=== PATIENT | female | born 1950 | race Caucasian/White ===

== ENCOUNTER 2018-01-02 09:34 | Outpatient (CLI) | payer MEDICARE, BC ==
[2018-01-02 10:51] LABS: #Basophils 0.1 thou/uL (0.0-0.2); #Eosinphils 0.3 thou/uL (0.0-0.7); #Lymphocytes 2.3 thou/uL (1.20-3.40); #Monocytes 0.5 thou/uL (0.11-0.59); #Neutrophils 3.2 thou/uL (1.40-6.50); %Basophils 1.3 % (0.0-1.0); %Eosinophils 4.1 % (0.0-10.0); %Lymphocytes 36.3 % (21.0-51.0); %Monocytes 8.5 % (0.0-10.0); %Neutrophils 49.8 % (42.0-75.0); Hemoglobin 13.8 g/dL (12.0-16.0); Mean Corpuscular HGB CONC 34.3 g/dL (32.0-36.0); Mean Corpuscular Hemoglobin 31.5 pg (27.0-31.0); Mean Corpuscular Volume 91.8 fL (78.0-98.0); Platelet Count 507 thou/uL (130-400); RBC Distribution Width 11.5 % (11.5-14.5); Red Blood Cell (RBC) Count 4.39 mill/uL (4.20-5.40); White Blood Cell (WBC) Count 6.4 thou/uL (4.8-10.8)
[2018-01-02 11:10] LABS: Anion Gap 11 mmol/L (10-20); BUN (Urea Nitrogen) 13 mg/dL (9.8-20.1); Calc. Creatinine Clearance 0 mL/min (70-130); Calcium 9.7 mg/dL (7.8-10.44); Carbon Dioxide 29 mmol/L (23-31); Chloride 104 mmol/L (98-107); Estimated GFR-MDRD 64; Glucose 97 mg/dL (80-115); Sodium 139 mmol/L (136-145)
== END 2018-01-02 09:35 | disposition home or self-care (01) ==
LOC: LABBT 09:34
PROVIDERS: ATTEND Surgery
DX: Z01.812 Encounter for preprocedural laboratory examination (principal); C50.912 Malignant neoplasm of unspecified site of left female breast
CPT/HCPCS: 80048; 85025

== ENCOUNTER 2018-01-13 06:58 | Day surgery (SDC) | payer MEDICARE, BC ==
[2018-01-02 09:46] VITALS: BMI 31.0
[2018-01-13] MEDS ORDERED: PHENYLEPHRINE-NS 100 MCG/ML 10 ML SYRINGE ONE (09:55)
[2018-01-13] MEDS ORDERED: PROPOFOL 200 MG/20 ML VIAL ONE (09:55)
[2018-01-13] MEDS ORDERED: Lidocaine 1% PF 5 ML VIAL ONE (09:55)
[2018-01-13] MEDS ORDERED: Ondansetron HCl/PF 4 MG/2 ML Vial ONE (09:55)
--- NOTE | 2018-01-13 10:41 | NM ---
RADIONUCLIDE LYMPHOSCINTIGRAPHY LEFT BREAST: HISTORY: Left breast cancer. FINDINGS: After explaining the procedure and answering all questions, the anterior periareolar aspect of the le ft breast was cleansed. A sterile technique was used to inject a total volume of 1 mL containing 0.4 3 millicuries technetium 99m filtered sulfur colloid into the dermis, at 12 o'clock, 3 o'clock, 6 o'c lock, and 9 o'clock periareolar positions of the left breast. The injection sites were massaged by eric lamb patient for diffusion. Imaging was performed. One hour images show uptake of radiotracer at the left axilla. The skin over the sentinel node was marked, and the patient was sent to day surgery. T adonis patient tolerated the procedure well and was transferred in good condition. IMPRESSION: Technically successful lymphoscintigraphy, left breast, revealing a single sentinel lymph node at the left axilla. POS: [facility]
[2018-01-13] MEDS ORDERED: Ketorolac Tromethamine 30 MG/ML VIAL ONE (14:25)
[2018-01-13] MEDS ORDERED: Fentanyl 100 MCG/2 ML VIAL ONE (14:34)
[2018-01-13] MEDS ORDERED: Promethazine HCl 25 MG/ML VIAL ONE (14:59)
--- NOTE | 2018-01-13 15:08 | MMO ---
SPECIMEN RADIOGRAPH: Date: 01/13/18 CLINICAL HISTORY: Status post excisional biopsy of recently biopsied mass of the upper left breast. FINDINGS: Specimen radiograph is submitted, which reveals biopsy marking clip, adjacent mammographic density wi th internal calcification. Findings telephoned to the patient's surgery, Jared Castaneda, at time the specimen was received, 13 50 hours, 01/13/18. IMPRESSION: Specimen radiograph from left breast excisional biopsy as discussed above. POS: [facility]
--- NOTE | 2018-01-13 15:47 | MMO ---
NEEDLE LOCATION LEFT BREAST MASS: 01/13/17 HISTORY: Left breast cancer. FINDINGS: After explaining the procedure and answering all questions, the mass and localization clip of the sup erior aspect of the left breast was visualized. Sterile technique, buffered local anesthesia, mammogr aphic guidance, and a superior approach were used to carefully advance a 20 gauge Kopan's needle thro ugh the posterior aspect of the mass. Guide wire was deployed and final images were obtained. Patient tolerated the procedure well and was transferred to surgery in good condition. IMPRESSION: Technically successful needle localization left breast mass. POS: [facility]
[2018-01-13] MEDS ORDERED: HYDROcodone/Acetaminophen 5/325 mg Tablet ONE (16:22)
--- NOTE | 2018-01-14 09:53 | OP ---
DATE OF PROCEDURE: 01/13/2018 PREOPERATIVE DIAGNOSIS: Invasive breast cancer, left breast. POSTOPERATIVE DIAGNOSIS: Invasive breast cancer, left breast. PROCEDURES: 1. Left partial mastectomy after needle localization. 2. Left deep axillary node biopsy (sentinel node protocol). SURGEON: Gabo Castaneda M.D. ANESTHESIA: General. ESTIMATED BLOOD LOSS: Minimal. COMPLICATIONS: None. FINDINGS: The previous biopsy clip is in the specimen on specimen x-ray. INDICATION: The patient is a 67-year-old, who has been found to have clinical stage T2N0 left breast cancer. Risks, benefits, alternatives were discussed. She gave consent for surgery. TECHNIQUE: The patient, on the morning of surgery, had preoperative placement of needle localization wire as well as lymphoscintigraphy performed, which showed uptake in the left axilla. She was taken to the operating room and laid supine on the operating room table. After general anesthetic was obt ained, 5 mL of methylene blue dye was infiltrated under her left nipple and massaged for 5 minutes. Her left chest, breast, axilla was all prepped and draped in a sterile fashion. Curved incision was made below the hairline in the left axilla. Clavipectoral fascia was entered. Neoprobe was used to find the area of increased uptake. There was a blue node found with high counts on the back table at was sent as sentinel node #1. The background counts dropped to near 0. This wound is irrigated a nd closed using 3-0 Vicryl, 4-0 Monocryl, and Dermabond. Next, a transverse incision is made near ere the needle localization wire enters the chest. Flaps are raised superior medially, inferior late rally, down to the chest wall around the end of needle localization wire. The specimen is sent to [facility] x-ray, reveals the biopsy clip to be in the specimen sent. The specimen had been marked with two short superior and one long lateral, sent to path for final diagnosis. The wound was irrigated. Local anesthetic was applied. The wound was closed using 3-0 Vicryl, 4-0 Monocryl, and Dermabond. The patient was en route to recovery in stable condition. All instrument counts, needle counts, lap counts were correct.
== END 2018-01-13 16:56 | disposition home or self-care (01) ==
LOC: SDC 06:58
PROVIDERS: ATTEND Surgery
PROC: 0HBU0ZZ Excision of Left Breast, Open Approach (ICD-10-PCS; principal; 2018-01-13)
PROC: 07B60ZX Excision of Left Axillary Lymphatic, Open Approach, Diagnostic (ICD-10-PCS; 2018-01-13)
DX: C50.812 Malignant neoplasm of overlapping sites of left female breast (principal); K21.9 Gastro-esophageal reflux disease without esophagitis; Z17.0 Estrogen receptor positive status [ER+]; Z79.899 Other long term (current) drug therapy; Z88.2 Allergy status to sulfonamides; Z88.5 Allergy status to narcotic agent; Z88.8 Allergy status to other drugs, medicaments and biological substances
CPT/HCPCS: 19281; 19301; 38525; 76098; 78195; 88307; 88342; 96374; A9541; J1885; J2001; J2405; J2550; J2704; J3010

== ENCOUNTER 2020-11-22 10:13 | Outpatient (CLI) | payer MEDICARE, BC | END 2020-11-22 10:14 | disposition home or self-care (01) | LOC: BICMAMMO 10:13 | PROVIDERS: ATTEND Internal Medicine Hematology & Oncology | DX: Z13.820 Encounter for screening for osteoporosis (principal); M85.859 Other specified disorders of bone density and structure, unspecified thigh; Z78.0 Asymptomatic menopausal state | CPT/HCPCS: 77080 ==

== ENCOUNTER 2021-02-05 15:59 | Outpatient (CLI) | payer MEDICARE, BC | END 2021-02-05 16:00 | disposition home or self-care (01) | LOC: BICRAD 15:59 | PROVIDERS: ATTEND Physician Assistant Medical | DX: R05 Cough (principal) | CPT/HCPCS: 71046 ==

== ENCOUNTER 2021-04-30 10:07 | Outpatient (CLI) | payer MEDICARE, BC | END 2021-04-30 10:08 | disposition home or self-care (01) | LOC: BICMAMMO 10:07 | PROVIDERS: ATTEND Internal Medicine Hematology & Oncology | DX: Z08 Encounter for follow-up examination after completed treatment for malignant neoplasm (principal); Z85.3 Personal history of malignant neoplasm of breast | CPT/HCPCS: 77066; G0279 ==

== ENCOUNTER 2023-06-06 08:39 | Outpatient (CLI) | payer MEDICARE, BC | END 2023-06-06 08:40 | disposition home or self-care (01) | LOC: SCSRAD 08:39 | PROVIDERS: ATTEND Nurse Practitioner Family | DX: S49.91XA Unspecified injury of right shoulder and upper arm, initial encounter (principal); M19.011 Primary osteoarthritis, right shoulder ==

== ENCOUNTER 2024-06-04 15:06 | Outpatient (CLI) | payer MEDICARE | END 2024-06-04 15:07 | disposition home or self-care (01) | LOC: SCSRAD 15:06 | PROVIDERS: ATTEND Family Medicine | DX: M54.41 Lumbago with sciatica, right side (principal); M43.17 Spondylolisthesis, lumbosacral region; M43.16 Spondylolisthesis, lumbar region; M47.816 Spondylosis without myelopathy or radiculopathy, lumbar region; M41.35 Thoracogenic scoliosis, thoracolumbar region | CPT/HCPCS: 72100 ==

== ENCOUNTER 2024-06-14 08:33 | Outpatient (CLI) | payer MEDICARE | END 2024-06-14 08:34 | disposition home or self-care (01) | LOC: SCSMRI 08:33 | PROVIDERS: ATTEND Family Medicine | DX: M43.16 Spondylolisthesis, lumbar region (principal); M47.816 Spondylosis without myelopathy or radiculopathy, lumbar region; M51.362 Other intervertebral disc degeneration, lumbar region with discogenic back pain and lower extremity pain; R93.7 Abnormal findings on diagnostic imaging of other parts of musculoskeletal system; M43.17 Spondylolisthesis, lumbosacral region | CPT/HCPCS: 72148 ==